=== PATIENT | female | born 1960 | race Caucasian/White ===

== ENCOUNTER 2023-07-09 03:58 | Emergency (ER) | payer OTHER ==
[2023-07-09 04:12] VITALS: BP 169/86; PULSE 88; RESP 19; TEMP 98.1; BMI 29.2
[2023-07-09] MEDS ORDERED: ONDANSETRON 4 MG/2 ML VIAL ONE (04:37)
[2023-07-09] MEDS ORDERED: ACETAMINOPHEN INJECTION 100 ML IVPB ONE (04:37)
[2023-07-09] MEDS ORDERED: FAMOTIDINE 20 MG/50 ML IVPB 20 MG/50 ML MG IVPB ONE (04:37)
[2023-07-09] MEDS: ONDANSETRON 4 MG/2 ML VIAL IVPUSH ONE (04:53)
[2023-07-09] MEDS: LACTATED RINGERS SOLUTION 1000 ML INFUS.BAG IV ONE (04:53)
[2023-07-09] MEDS: ACETAMINOPHEN 1000 MG/100 ML BAG IVPB ONE (04:54)
[2023-07-09 04:58] LABS: BASO % 0.4 % (0-2.0); HEMATOCRIT 47.9 % (32.4-45.2); HEMOGLOBIN 15.8 GM/dL (10.7-15.3); LYMPH % 16.2 % (8-40); MCH 30.5 pg (25.7-33.7); MEAN CELL VOLUME 92.6 fl (80-96); MEAN PLT VOLUME 7.8 fl (7.5-11.1); MONO % 7.2 % (3.8-10.2); NEUT % 76.2 % (42.8-82.8); PLATELET COUNT 277 10^3/uL (134-434); RBC 5.18 M/mm3 (3.60-5.2); RDW 13.6 % (11.6-15.6); WHITE BLOOD COUNT 13.8 K/mm3 (4.0-10.0)
[2023-07-09] MEDS: FAMOTIDINE 20 MG/50 ML IVPB 20 MG/50 ML MG IVPB ONE (05:03)
[2023-07-09] MEDS ORDERED: morphine SULFATE 4 MG/ML VIAL ONE (05:11)
[2023-07-09 05:13] LABS: INR 1.02 (0.83-1.09); POTASSIUM 3.3 mmol/L (3.5-5.1); PROTHROMBIN TIME (PATIENT) 11.7 SEC (9.7-13.0)
[2023-07-09] MEDS: morphine CARPU-JECT 4 MG/1 ML DISP.SYRIN IVPUSH ONE (05:14)
[2023-07-09 05:16] LABS: ACTIVATED PTT 29.5 SECONDS (25.2-36.5); ALBUMIN 4.5 g/dl (3.4-5.0); BLOOD UREA NITROGEN 36.2 mg/dL (7-18); CALCIUM 10.2 mg/dL (8.5-10.1)
[2023-07-09 05:17] LABS: MAGNESIUM 2.6 mg/dL (1.8-2.4)
[2023-07-09 05:18] LABS: CREATININE 1.2 mg/dL (0.55-1.3)
[2023-07-09 05:21] LABS: BILIRUBIN,TOTAL 1.2 mg/dL (0.2-1); TOT PROT 8.4 g/dl (6.4-8.2)
== END 2023-07-09 06:33 | disposition left against medical advice (07) ==
LOC: JER 03:58
PROC: 3E033GC Introduction of Other Therapeutic Substance into Peripheral Vein, Percutaneous Approach (ICD-10-PCS; principal; 2023-07-09)
PROC: 3E033GC Introduction of Other Therapeutic Substance into Peripheral Vein, Percutaneous Approach (ICD-10-PCS; 2023-07-09)
PROC: 3E033GC Introduction of Other Therapeutic Substance into Peripheral Vein, Percutaneous Approach (ICD-10-PCS; 2023-07-09)
PROC: 3E033NZ Introduction of Analgesics, Hypnotics, Sedatives into Peripheral Vein, Percutaneous Approach (ICD-10-PCS; 2023-07-09)
DX: R10.13 Epigastric pain (principal); R11.2 Nausea with vomiting, unspecified
CPT/HCPCS: 36415; 80053; 83690; 83735; 85025; 85610; 85730; 99284-25; J0131

== ENCOUNTER 2024-08-03 10:10 | Inpatient (IN) | payer MEDICARE ==
[2024-08-03] MEDS ORDERED: ACETAMINOPHEN 500 MG TABLET (FP) ONE (11:52)
[2024-08-03] MEDS: ACETAMINOPHEN 500 MG TABLET (FP) PO ONE (11:56)
[2024-08-03 11:57] LABS: ABSOLUTE IMMATURE GRANULOCYTES 0.07 x10^3/uL (0.0-0.031); BASOPHILS # 0.03 x10^3/uL (0.01-0.08); EOSINOPHIL % 0.1 % (0.7-5.8); EOSINOPHILS # 0.01 x10^3/uL (0.04-0.36); HEMATOCRIT 38.7 % (34.1-44.9); HEMOGLOBIN 12.2 g/dL (11.2-15.7); MCHC 31.5 g/dl (32.2-35.5); MEAN CELL VOLUME 94.6 fl (79.4-94.8); MEAN PLT VOLUME 9.2 fl (9.4-12.3); MONOCYTE # 0.37 x10^3/uL (0.24-0.86); MONOCYTE % 3.9 % (4.7-12.5); PLATELET COUNT 409 x10^3/uL (182-369); RDW 14.6 % (12.4-16.4)
[2024-08-03 12:12] LABS: POTASSIUM 4.6 mmol/L (3.5-5.1)
[2024-08-03 12:15] LABS: ALBUMIN 3.5 g/dl (3.4-5.0)
[2024-08-03 12:16] LABS: BLOOD UREA NITROGEN 26.3 mg/dL (7-18)
[2024-08-03 12:19] LABS: BILIRUBIN,TOTAL 0.4 mg/dL (0.2-1); CREATININE 0.8 mg/dL (0.55-1.3); TOT PROT 7.8 g/dl (6.4-8.2)
[2024-08-03 12:47] LABS: LACTIC ACID 2.3 mmol/L (0.4-2.0)
[2024-08-03] MEDS: LACTATED RINGERS SOLUTION 1000 ML INFUS.BAG IV ONE (13:34)
[2024-08-03] MEDS ORDERED: KETOROLAC TROMETHAMINE 15 MG/ML VIAL ONE (14:52)
[2024-08-03] MEDS: KETOROLAC TROMETHAMINE 15 MG/ML VIAL IVPUSH ONE (14:57)
[2024-08-03] MEDS ORDERED: ACETAMINOPHEN 1000 MG/100 ML BAG IVPB PRN (15:11)
[2024-08-03 16:30] LABS: LACTIC ACID 2.6 mmol/L (0.4-2.0)
[2024-08-03] MEDS ORDERED: SODIUM CHLORIDE 1,000 ML IV SCH (17:00)
[2024-08-03 17:10] VITALS: BMI 15.1
[2024-08-03] MEDS: SODIUM CHLORIDE 1,000 ML IV SCH (18:04)
[2024-08-03] MEDS: oxyCODONE HCL 5 MG TABLET PO ONE (18:07)
[2024-08-03 19:53] LABS: LACTIC ACID 3.2 mmol/L (0.4-2.0)
[2024-08-03] MEDS: ATORVASTATIN CA 40 MG TABLET (FP) PO SCH (21:10)
[2024-08-03 21:43] VITALS: RESP 18
[2024-08-03] MEDS: KETOROLAC TROMETHAMINE 15 MG/ML VIAL IVPUSH PRN (22:16)
[2024-08-04] MEDS: ACETAMINOPHEN 325 MG TABLET (FP) PO PRN (02:45)
[2024-08-04] MEDS: HEPARIN NA (PORCINE) 5,000 UNITS/ML 1ML VIAL SQ SCH (05:05)
[2024-08-04 08:19] LABS: HEMOGLOBIN 11.3 g/dL (11.2-15.7); MCHC 31.4 g/dl (32.2-35.5); MEAN CELL VOLUME 94.2 fl (79.4-94.8); MEAN PLT VOLUME 9.4 fl (9.4-12.3); PLATELET COUNT 364 x10^3/uL (182-369); RDW 14.4 % (12.4-16.4)
[2024-08-04 08:40] LABS: POTASSIUM 4.3 mmol/L (3.5-5.1)
[2024-08-04 08:57] LABS: BLOOD UREA NITROGEN 22.1 mg/dL (7-18); CALCIUM 9.5 mg/dL (8.5-10.1)
[2024-08-04 09:01] LABS: CREATININE 0.7 mg/dL (0.55-1.3)
[2024-08-04] MEDS ORDERED: ENOXAPARIN NA (PORCINE) 30 MG/0.3 ML DISP.SYRIN SQ SCH (10:00)
[2024-08-04] MEDS: TIOTROPIUM BROMIDE 2.5 MCG (SPIRIVA) RESPIMAT INHALER IH SCH (11:22)
[2024-08-04] MEDS: BACITRACIN ZINC 15 GM TUBE TOPICAL OINTMENT TP SCH (12:15)
[2024-08-04] MEDS: methaDONE HCL 10 MG TABLET PO ONE (12:16)
[2024-08-04] MEDS ORDERED: methaDONE HCL 10 MG TABLET PO ONE (12:48)
[2024-08-04 17:17] LABS: INR 1.05 (0.83-1.09); PROTHROMBIN TIME (PATIENT) 11.4 SEC (9.7-13.0)
[2024-08-04 17:19] LABS: ACTIVATED PTT 60.8 SECONDS (25.2-36.5)
[2024-08-05 03:10] VITALS: TEMP 98.1
[2024-08-05] MEDS: methaDONE 80 MG, methaDONE 10 MG PO SCH (05:15)
[2024-08-05] MEDS ORDERED: methaDONE HCL 40 MG DISPERSABLE TABLET PO SCH (06:00)
[2024-08-05] MEDS: ASPIRIN 81 MG CHEWABLE TABLETS PO SCH (10:17)
[2024-08-05 14:36] VITALS: BP 140/82; PULSE 66
== END 2024-08-05 17:20 | disposition home or self-care (01) | DRG 197 ==
LOC: JER 10:10 → JERBED 13:34 → J6S 16:55
PROVIDERS: ADMIT Student in an Organized Health Care Education/Training Program; ATTEND Internal Medicine
DX: I73.9 Peripheral vascular disease, unspecified (principal); E43 Unspecified severe protein-calorie malnutrition; F17.210 Nicotine dependence, cigarettes, uncomplicated; F19.10 Other psychoactive substance abuse, uncomplicated; Z59.00 Homelessness unspecified; Z68.1 Body mass index [BMI] 19.9 or less, adult
CPT/HCPCS: 36415; 71045-TC-FY; 75635-TC; 80048; 80053; 80061; 83036; 83605; 83735; 85025; 85027; 85610; 85730; 86850; 86900; 86901; 93005; 93010; 93306-TC; 93970-TC; 99285-25; Q9967

== ENCOUNTER 2024-08-10 19:21 | Inpatient (IN) | payer MEDICARE ==
[2024-08-10 22:41] LABS: ABSOLUTE IMMATURE GRANULOCYTES 0.03 x10^3/uL (0.0-0.031); BASOPHILS # 0.04 x10^3/uL (0.01-0.08); EOSINOPHIL % 1.3 % (0.7-5.8); EOSINOPHILS # 0.15 x10^3/uL (0.04-0.36); MCHC 31.5 g/dl (32.2-35.5); MEAN CELL VOLUME 94.5 fl (79.4-94.8); MEAN PLT VOLUME 10.1 fl (9.4-12.3); MONOCYTE # 0.49 x10^3/uL (0.24-0.86); MONOCYTE % 4.3 % (4.7-12.5); RDW 15.0 % (12.4-16.4)
[2024-08-10 22:48] LABS: INR 1.04 (0.83-1.09); PROTHROMBIN TIME (PATIENT) 11.3 SEC (9.7-13.0)
[2024-08-10 22:51] LABS: ACTIVATED PTT 28.3 SECONDS (25.2-36.5)
[2024-08-10 23:04] LABS: CO2 29.0 mmol/L (21-32); GLUCOSE,RANDOM 146.0 mg/dL (74-106)
[2024-08-10 23:07] LABS: SGOT/AST 15.0 U/L (15-37); SGPT/ALT 26.0 U/L (13-61)
[2024-08-10 23:08] LABS: CREATININE 1.0 mg/dL (0.55-1.3)
[2024-08-10 23:09] LABS: TOT PROT 6.4 g/dl (6.4-8.2)
[2024-08-10 23:10] LABS: ALK PHOS 67.0 U/L (45-117)
[2024-08-11 00:22] LABS: HCV DIAGNOSTIC IN-HOUSE W/RFLX NON-REACTIVE (NONREACTIVE)
[2024-08-11] MEDS ORDERED: ACETAMINOPHEN 1000 MG/100 ML BAG IVPB PRN ×2 (02:33→14:54)
[2024-08-11] MEDS: ACETAMINOPHEN 1000 MG/100 ML BAG IVPB PRN (02:48)
[2024-08-11] MEDS ORDERED: HEPARIN NA (PORCINE) 5,000 UNITS/ML 1ML VIAL ONE (07:27)
[2024-08-11] MEDS ORDERED: LIDOCAINE HCL 1%, 10 MG/ML (20ML VIAL) ONE (07:27)
[2024-08-11 08:08] LABS: ABSOLUTE IMMATURE GRANULOCYTES 0.03 x10^3/uL (0.0-0.031); BASOPHILS # 0.06 x10^3/uL (0.01-0.08)
[2024-08-11 08:10] LABS: EOSINOPHIL % 1.6 % (0.7-5.8); EOSINOPHILS # 0.16 x10^3/uL (0.04-0.36); IMMATURE PLATELET FRACTION # 7.50 x10^3/uL; MCHC 30.7 g/dl (32.2-35.5); MEAN CELL VOLUME 95.3 fl (79.4-94.8); MEAN PLT VOLUME 9.9 fl (9.4-12.3); MONOCYTE # 0.59 x10^3/uL (0.24-0.86); MONOCYTE % 5.9 % (4.7-12.5); RDW 14.9 % (12.4-16.4)
[2024-08-11] MEDS ORDERED: PROPOFOL 20 ML ONE ×2 (08:16→11:13)
[2024-08-11] MEDS ORDERED: ROCURONIUM BROMIDE 50 MG/5 ML SYRINGE ONE ×2 (08:16→13:04)
[2024-08-11] MEDS ORDERED: LIDOCAINE HCL 2% 100 MG/5 ML DISP.SYRIN ONE (08:16)
[2024-08-11] MEDS ORDERED: MIDAZOLAM HCL 2 MG/2 ML SINGLE DOSE VIAL ONE (08:17)
[2024-08-11 08:33] LABS: CO2 26.0 mmol/L (21-32); GLUCOSE,RANDOM 90.0 mg/dL (74-106)
[2024-08-11 08:36] LABS: CREATININE 0.7 mg/dL (0.55-1.3); SGPT/ALT 27.0 U/L (13-61)
[2024-08-11 08:37] LABS: SGOT/AST 14.0 U/L (15-37)
[2024-08-11 08:38] LABS: TOT PROT 6.9 g/dl (6.4-8.2)
[2024-08-11 08:39] LABS: ALK PHOS 69.0 U/L (45-117)
[2024-08-11] MEDS ORDERED: ESMOLOL HCL 100,000 MCG/10 ML VIAL ONE ×2 (08:45→10:50)
[2024-08-11] MEDS ORDERED: LABETALOL HCL 20 MG/4 ML VIAL ONE ×4 (09:13→16:20)
[2024-08-11] MEDS ORDERED: KETAMINE HCL 200 MG/20 ML VIAL ONE (09:14)
[2024-08-11] MEDS ORDERED: ONDANSETRON 4 MG/2 ML VIAL IVPUSH PRN ×2 (09:31→14:54)
[2024-08-11] MEDS ORDERED: LOSARTAN POTASSIUM 25 MG TABLET PO SCH (10:00)
[2024-08-11] MEDS ORDERED: SUGAMMADEX SODIUM 200 MG/2 ML VIAL ONE (10:08)
[2024-08-11] MEDS ORDERED: NITROGLYCERIN 50 MG/10 ML VIAL IVPB ONE (11:16)
[2024-08-11] MEDS ORDERED: PHENYLEPHRINE HCL 10 MG/1 ML SINGLE DOSE VIAL ONE (12:02)
[2024-08-11] MEDS ORDERED: PROTAMINE SULFATE 50 MG/5 ML VIAL ONE (13:19)
[2024-08-11 14:16] VITALS: BMI 16.0
[2024-08-11] MEDS ORDERED: LABETALOL HCL 5 MG/1 ML (100MG/20 ML VIAL) ONE (14:47)
[2024-08-11] MEDS: ACETAMINOPHEN 1000 MG/100 ML BAG IVPB ONE (14:49)
[2024-08-11] MEDS: LABETALOL HCL 20 MG/4 ML VIAL IVPUSH PRN (14:52)
[2024-08-11] MEDS: HYDROmorphone *PCA* 10MG/50ML DISP.SYRIN PCA SCH ×2 (15:30→16:10)
[2024-08-11 15:35] LABS: MCHC 31.5 g/dl (32.2-35.5); MEAN CELL VOLUME 95.5 fl (79.4-94.8); MEAN PLT VOLUME 9.6 fl (9.4-12.3); RDW 15.1 % (12.4-16.4)
[2024-08-11 15:57] LABS: CO2 26.0 mmol/L (21-32); GLUCOSE,RANDOM 196.0 mg/dL (74-106)
[2024-08-11 16:00] LABS: CREATININE 1.1 mg/dL (0.55-1.3)
[2024-08-11] MEDS: MANNITOL 25% 12.5 GM/50 ML VIAL IVPB ONE ×2 (16:11)
[2024-08-11] MEDS ORDERED: ACETAMINOPHEN 1000 MG/100 ML BAG IVPB SCH (16:15)
[2024-08-11] MEDS: NICARDIPINE 25 MG in DEXTROSE 5%-WATER - 240 ML IVPB SCH (16:49)
[2024-08-11] MEDS: ASPIRIN COATED 81 MG TABLET.EC PO SCH (17:03)
[2024-08-11 18:03] LABS: HIV INTERPRETATION NEGATIVE (NEGATIVE)
[2024-08-11] MEDS: LACTATED RINGERS SOLUTION 1,000 ML/1,000 ML INFUS.BAG IV SCH (18:32)
[2024-08-11] MEDS: DEXMEDETOMIDINE PREMIX 400 MCG/100 ML BAG IVPB SCH (21:12)
[2024-08-11] MEDS: CHLORHEXIDINE GLUCONATE 4% CLEANSER FOR DECOLONIZATION TP SCH (21:30)
[2024-08-11] MEDS: MUPIROCIN 2% TOPICAL OINTMENT FOR DECOLONIZATION NS SCH (21:30)
[2024-08-11] MEDS: ATORVASTATIN CA 80 MG TABLET (FP) PO SCH (21:32)
[2024-08-11] MEDS: ACETAMINOPHEN 1000 MG/100 ML BAG IVPB SCH (21:32)
[2024-08-11] MEDS ORDERED: ATORVASTATIN CA 80 MG TABLET (FP) PO SCH (22:00)
[2024-08-11] MEDS: CEFAZOLIN 1 GM in DEXTROSE 5%-WATER - 50 ML IVPB SCH (23:54)
[2024-08-12 09:17] LABS: ABSOLUTE IMMATURE GRANULOCYTES 0.07 x10^3/uL (0.0-0.031); BASOPHILS # 0.02 x10^3/uL (0.01-0.08); EOSINOPHIL % 0.1 % (0.7-5.8); EOSINOPHILS # 0.01 x10^3/uL (0.04-0.36); MCHC 32.2 g/dl (32.2-35.5); MEAN CELL VOLUME 93.5 fl (79.4-94.8); MEAN PLT VOLUME 10.0 fl (9.4-12.3); MONOCYTE # 0.83 x10^3/uL (0.24-0.86); MONOCYTE % 5.8 % (4.7-12.5); RDW 14.9 % (12.4-16.4)
[2024-08-12 10:01] LABS: GLUCOSE,RANDOM 132.0 mg/dL (74-106)
[2024-08-12 10:02] LABS: CO2 29.0 mmol/L (21-32)
[2024-08-12 10:04] LABS: CREATININE 0.9 mg/dL (0.55-1.3); SGPT/ALT 26.0 U/L (13-61)
[2024-08-12 10:05] LABS: SGOT/AST 42.0 U/L (15-37)
[2024-08-12 10:06] LABS: TOT PROT 5.0 g/dl (6.4-8.2)
[2024-08-12 10:07] LABS: ALK PHOS 53.0 U/L (45-117)
[2024-08-12] MEDS: ENOXAPARIN NA (PORCINE) 40 MG/0.4 ML DISP.SYRIN SQ SCH (10:57)
[2024-08-12] MEDS: ASPIRIN COATED 81 MG TABLET.EC PO SCH (10:57)
[2024-08-12] MEDS: MAGNESIUM SULFATE IN WATER 2 GM/50 ML IVPB IVPB ONE (18:09)
[2024-08-13 06:45] LABS: ABSOLUTE IMMATURE GRANULOCYTES 0.13 x10^3/uL (0.0-0.031); BASOPHILS # 0.03 x10^3/uL (0.01-0.08); EOSINOPHIL % 0.1 % (0.7-5.8); EOSINOPHILS # 0.01 x10^3/uL (0.04-0.36); MCHC 32.1 g/dl (32.2-35.5); MEAN CELL VOLUME 93.0 fl (79.4-94.8); MEAN PLT VOLUME 10.2 fl (9.4-12.3); MONOCYTE # 0.78 x10^3/uL (0.24-0.86); MONOCYTE % 4.3 % (4.7-12.5); RDW 14.9 % (12.4-16.4)
[2024-08-13 07:03] LABS: CO2 29.0 mmol/L (21-32); GLUCOSE,RANDOM 106.0 mg/dL (74-106)
[2024-08-13 07:06] LABS: CREATININE 0.6 mg/dL (0.55-1.3); SGOT/AST 45.0 U/L (15-37); SGPT/ALT 25.0 U/L (13-61)
[2024-08-13 07:08] LABS: TOT PROT 5.6 g/dl (6.4-8.2)
[2024-08-13 07:09] LABS: ALK PHOS 62.0 U/L (45-117)
[2024-08-13] MEDS: ALBUTEROL SO4 0.083% IH SOL 2.5 MG/3 ML VIAL.NEB. NEB SCH ×2 (07:20→19:32)
[2024-08-13] MEDS: ACETYLCYSTEINE 20% 200MG/ML 30 ML VIAL *FOR ORAL / INH USE ONLY NEB SCH (07:20)
[2024-08-13] MEDS: LOSARTAN POTASSIUM 50 MG TABLET PO SCH (09:40)
[2024-08-13] MEDS ORDERED: guaiFENesin 600 MG TABLET.ER (FP) PO SCH (10:00)
[2024-08-13] MEDS ORDERED: BENZONATATE 200 MG CAPSULE PO PRN (10:21)
[2024-08-13] MEDS ORDERED: morphine CARPU-JECT 4 MG/1 ML DISP.SYRIN IVPUSH PRN (10:40)
[2024-08-13] MEDS ORDERED: LABETALOL HCL 20 MG/4 ML VIAL IVPUSH PRN (10:43)
[2024-08-13] MEDS: BISACODYL 10 MG SUPP.RECT PR ONE (11:27)
[2024-08-13] MEDS: ACETAMINOPHEN 1000 MG/100 ML BAG IVPB SCH (11:28)
[2024-08-13] MEDS: ACETYLCYSTEINE 20% 200MG/ML 4 ML VIAL *FOR ORAL / INH USE ONLY NEB SCH ×2 (11:40→19:32)
[2024-08-13] MEDS: ALBUTEROL SO4 2.5/IPRATROPIUM 0.5 INH SOL 3 ML VIAL.NEB. NEB SCH ×2 (12:40→16:00)
[2024-08-13] MEDS ORDERED: ALBUTEROL SO4 2.5/IPRATROPIUM 0.5 INH SOL 3 ML VIAL.NEB. NEB SCH (16:00)
[2024-08-13] MEDS ORDERED: ALBUTEROL SO4 2.5/IPRATROPIUM 0.5 INH SOL 3 ML VIAL.NEB. NEB PRN (16:28)
[2024-08-13] MEDS: ACETAMINOPHEN 1000 MG/100 ML BAG IVPB PRN (17:18)
[2024-08-13] MEDS ORDERED: ACETYLCYSTEINE 20% 200MG/ML 4 ML VIAL *FOR ORAL / INH USE ONLY NEB SCH (18:00)
[2024-08-13] MEDS: SENNOSIDES/DOCUSATE COMBO (SENNA PLUS) TABLET (UD) PO SCH (21:29)
[2024-08-13] MEDS: POLYETHYLENE GLYCOL (HEALTHYLAX) 3350 17 GM PACKET PO SCH (21:29)
[2024-08-14 07:36] LABS: MCHC 32.2 g/dl (32.2-35.5); MEAN CELL VOLUME 92.7 fl (79.4-94.8); MEAN PLT VOLUME 10.0 fl (9.4-12.3); RDW 14.5 % (12.4-16.4)
[2024-08-14 09:42] LABS: TOT PROT 5.5 g/dl (6.4-8.2)
[2024-08-14 10:10] LABS: GLUCOSE,RANDOM 128.0 mg/dL (74-106)
[2024-08-14 10:12] LABS: CREATININE 0.6 mg/dL (0.55-1.3)
[2024-08-14 10:13] LABS: CO2 30.0 mmol/L (21-32); SGOT/AST 35.0 U/L (15-37); SGPT/ALT 22.0 U/L (13-61)
[2024-08-14 10:18] LABS: ALK PHOS 68.0 U/L (45-117)
[2024-08-15 08:05] LABS: ABSOLUTE IMMATURE GRANULOCYTES 0.07 x10^3/uL (0.0-0.031); BASOPHILS # 0.03 x10^3/uL (0.01-0.08); EOSINOPHIL % 0.5 % (0.7-5.8); EOSINOPHILS # 0.06 x10^3/uL (0.04-0.36); MCHC 31.2 g/dl (32.2-35.5); MEAN CELL VOLUME 95.7 fl (79.4-94.8); MEAN PLT VOLUME 10.4 fl (9.4-12.3); MONOCYTE # 0.78 x10^3/uL (0.24-0.86); MONOCYTE % 6.1 % (4.7-12.5); RDW 14.6 % (12.4-16.4)
[2024-08-15] MEDS ORDERED: PIPERACILLIN/TAZOB 2.25 GM 2.25 GM in DEXTROSE 5%-WATER - 50 ML IVPB SCH (09:00)
[2024-08-15] MEDS: PIPERACILLIN/TAZOB 2.25 GM 2.25 GM in DEXTROSE 5%-WATER - 50 ML IVPB SCH (11:11)
[2024-08-15] MEDS: VANCOMYCIN/WATER FOR INJ (PEG) 750 MG/150 ML BAG IVPB ONE ×2 (13:46→17:08)
[2024-08-15] MEDS: POTASSIUM CHLORIDE ORAL LIQUID 20 MEQ/15 ML PO ONE (21:13)
[2024-08-15] MEDS ORDERED: BENZONATATE 200 MG CAPSULE PO PRN (22:00)
[2024-08-15] MEDS ORDERED: ALBUTEROL SO4 2.5/IPRATROPIUM 0.5 INH SOL 3 ML VIAL.NEB. NEB PRN (22:00)
[2024-08-15 22:02] VITALS: RESP 18
[2024-08-15] MEDS: SENNOSIDES/DOCUSATE COMBO (SENNA PLUS) TABLET (UD) PO SCH (23:45)
[2024-08-15] MEDS: POLYETHYLENE GLYCOL (HEALTHYLAX) 3350 17 GM PACKET PO SCH (23:58)
[2024-08-15] MEDS: ATORVASTATIN CA 80 MG TABLET (FP) PO SCH (23:59)
[2024-08-16] MEDS: CHLORHEXIDINE GLUCONATE 4% CLEANSER FOR DECOLONIZATION TP SCH (00:01)
[2024-08-16] MEDS: MUPIROCIN 2% TOPICAL OINTMENT FOR DECOLONIZATION NS SCH (00:01)
[2024-08-16] MEDS ORDERED: PIPERACILLIN/TAZOBACTAM 2.25 GM VIAL IVPB ONE (02:46)
[2024-08-16] MEDS: ALBUTEROL SO4 0.083% IH SOL 2.5 MG/3 ML VIAL.NEB. NEB SCH (08:15)
[2024-08-16] MEDS: ACETYLCYSTEINE 20% 200MG/ML 4 ML VIAL *FOR ORAL / INH USE ONLY NEB SCH (08:15)
[2024-08-16] MEDS: ENOXAPARIN NA (PORCINE) 40 MG/0.4 ML DISP.SYRIN SQ SCH (09:43)
[2024-08-16] MEDS: ASPIRIN COATED 81 MG TABLET.EC PO SCH (09:43)
[2024-08-16] MEDS: LOSARTAN POTASSIUM 50 MG TABLET PO SCH (09:44)
[2024-08-16 10:01] LABS: ABSOLUTE IMMATURE GRANULOCYTES 0.07 x10^3/uL (0.0-0.031); BASOPHILS # 0.02 x10^3/uL (0.01-0.08); EOSINOPHIL % 0.6 % (0.7-5.8); EOSINOPHILS # 0.09 x10^3/uL (0.04-0.36); MCHC 31.3 g/dl (32.2-35.5); MEAN CELL VOLUME 95.7 fl (79.4-94.8); MEAN PLT VOLUME 9.8 fl (9.4-12.3); MONOCYTE # 0.84 x10^3/uL (0.24-0.86); MONOCYTE % 6.0 % (4.7-12.5); RDW 14.6 % (12.4-16.4)
[2024-08-16 10:27] LABS: CO2 33.0 mmol/L (21-32); GLUCOSE,RANDOM 118.0 mg/dL (74-106)
[2024-08-16 10:29] LABS: CREATININE 0.6 mg/dL (0.55-1.3); SGOT/AST 25.0 U/L (15-37); SGPT/ALT 21.0 U/L (13-61)
[2024-08-16 10:31] LABS: TOT PROT 6.0 g/dl (6.4-8.2)
[2024-08-16 10:32] LABS: ALK PHOS 75.0 U/L (45-117)
[2024-08-16] MEDS: POTASSIUM CHLORIDE TABS 20 MEQ TABLET.ER (FP) PO ONE (13:29)
[2024-08-16] MEDS: PIPERACILLIN/TAZOB 3.375 GM 3.375 GM in DEXTROSE 5%-WATER - 50 ML IVPB SCH (18:45)
[2024-08-16] MEDS: BACITRACIN ZINC 15 GM TUBE TOPICAL OINTMENT TP SCH (21:51)
[2024-08-17 09:28] LABS: ABSOLUTE IMMATURE GRANULOCYTES 0.10 x10^3/uL (0.0-0.031); BASOPHILS # 0.03 x10^3/uL (0.01-0.08); EOSINOPHIL % 1.0 % (0.7-5.8); EOSINOPHILS # 0.14 x10^3/uL (0.04-0.36); MCHC 31.1 g/dl (32.2-35.5); MEAN CELL VOLUME 95.4 fl (79.4-94.8); MEAN PLT VOLUME 10.0 fl (9.4-12.3); MONOCYTE # 1.09 x10^3/uL (0.24-0.86); MONOCYTE % 7.9 % (4.7-12.5); RDW 14.4 % (12.4-16.4)
[2024-08-17 10:03] LABS: CO2 30.0 mmol/L (21-32); GLUCOSE,RANDOM 85.0 mg/dL (74-106)
[2024-08-17 10:06] LABS: CREATININE 0.6 mg/dL (0.55-1.3); SGOT/AST 41.0 U/L (15-37); SGPT/ALT 35.0 U/L (13-61)
[2024-08-17 10:07] LABS: TOT PROT 6.3 g/dl (6.4-8.2)
[2024-08-17 10:08] LABS: ALK PHOS 79.0 U/L (45-117)
[2024-08-17] MEDS ORDERED: ALBUTEROL SO4 2.5/IPRATROPIUM 0.5 INH SOL 3 ML VIAL.NEB. NEB ONE (14:06)
[2024-08-17] MEDS: ALBUTEROL SO4 2.5/IPRATROPIUM 0.5 INH SOL 3 ML VIAL.NEB. NEB SCH (21:25)
[2024-08-18 09:21] LABS: ABSOLUTE IMMATURE GRANULOCYTES 0.10 x10^3/uL (0.0-0.031); BASOPHILS # 0.04 x10^3/uL (0.01-0.08); EOSINOPHIL % 3.4 % (0.7-5.8); EOSINOPHILS # 0.37 x10^3/uL (0.04-0.36); MCHC 30.8 g/dl (32.2-35.5); MEAN CELL VOLUME 95.7 fl (79.4-94.8); MEAN PLT VOLUME 10.0 fl (9.4-12.3); MONOCYTE # 0.99 x10^3/uL (0.24-0.86); MONOCYTE % 9.1 % (4.7-12.5); RDW 14.4 % (12.4-16.4)
[2024-08-18 09:50] LABS: SGPT/ALT 33.0 U/L (13-61)
[2024-08-18 09:51] LABS: CO2 30.0 mmol/L (21-32); GLUCOSE,RANDOM 95.0 mg/dL (74-106); TOT PROT 5.9 g/dl (6.4-8.2)
[2024-08-18 09:52] LABS: ALK PHOS 69.0 U/L (45-117); SGOT/AST 35.0 U/L (15-37)
[2024-08-18 09:53] LABS: CREATININE 0.6 mg/dL (0.55-1.3)
[2024-08-18 10:18] VITALS: BP 141/90; PULSE 83; TEMP 98.6
== END 2024-08-18 15:11 | disposition home or self-care (01) | DRG 169 ==
LOC: JER 19:21 → JERBED 20:10 → J7W 23:13 → OBSVTOIN 08-11 08:42 → JICU 08-11 16:17 → J4W 08-13 17:06 → J5S 08-15 21:54
PROVIDERS: ADMIT Internal Medicine
PROC: 04CL3ZZ Extirpation of Matter from Left Femoral Artery, Percutaneous Approach (ICD-10-PCS; 2024-08-11)
PROC: 04CK3ZZ Extirpation of Matter from Right Femoral Artery, Percutaneous Approach (ICD-10-PCS; 2024-08-11)
PROC: 04100JK Bypass Abdominal Aorta to Bilateral Femoral Arteries with Synthetic Substitute, Open Approach (ICD-10-PCS; principal; 2024-08-11 08:00)
DX: I70.212 Atherosclerosis of native arteries of extremities with intermittent claudication, left leg (principal); E43 Unspecified severe protein-calorie malnutrition; J18.9 Pneumonia, unspecified organism; R64 Cachexia; F11.10 Opioid abuse, uncomplicated; I10 Essential (primary) hypertension; Z68.1 Body mass index [BMI] 19.9 or less, adult
CPT/HCPCS: 36415; 71045-TC-FY; 71250-TC; 74176-TC; 80048; 80053; 83735; 84100; 85025; 85027; 85610; 85730; 86803; 86850; 86891; 86900; 86901; 86922; 87040; 87070; 87205; 87389; 87635; 88304-TC; 88311-TC; 94010; 94640; 94760; 97116-GP; 97161-GP; 99285-25; C1768; G0378; J1644